=== PATIENT | female | born 1940 | race Caucasian/White ===

== ENCOUNTER 2018-07-27 22:27 | Emergency (ER) | payer MEDICARE, MEDICAID ==
--- NOTE | 2018-07-27 23:24 | EDM.PDOC ---
ED HPI GENERAL MEDICAL PROBLEM - General Chief Complaint: Genitourinary Problem Stated Complaint: UTI Time Seen by Provider: 07/27/18 23:18 Source of Information: Reports: Patient History Limitations: Reports: No Limitations - History of Present Illness INITIAL COMMENTS - FREE TEXT/NARRATIVE: 77 yo female with c/o incontinence and urgency of urine since last Thursday. Associated with pelvic and right lower abdominal pain. No fever. Pain is moderate. Has had similar episodes and previously has gone to [place] local ER's. She came in by EMS. Her PMH has a h/o Diverticulitis,HTN,GED and HLD.She has had GUSTAVO,Appendectomy and Cholecystectomy - Related Data Allergies Allergy/AdvReac Type Severity Reaction Status Date / Time Penicillins Allergy Abdominal Verified 07/27/18 23:05 Pain Home Meds: Home Meds . [Unable to Verify Home Med List] 07/27/18 [History] ED ROS GENERAL - Review of Systems Review Of Systems: ROS reveals no pertinent complaints other than HPI. ED EXAM, RENAL/ - Physical Exam Exam: See Below Exam Limited By: No Limitations General Appearance: Alert, WD/WN Ears: Normal External Exam Nose: Normal Inspection Throat/Mouth: Normal Inspection Neck: Normal Inspection Respiratory/Chest: No Respiratory Distress Cardiovascular: Normal Peripheral Pulses GI/Abdominal: Normal Bowel Sounds Back Exam: Normal Inspection Course - Orders/Labs/Meds Labs: Laboratory Tests 07/27/18 07/27/18 07/27/18 Range/Units 22:15 22:43 22:43 WBC 5.5 (4.5-12.0) X10-3/uL RBC 4.36 (3.23-5.20) x10(6)uL Hgb 12.1 (11.5-15.5) g/dL Hct 36.8 (30.0-51.3) % MCV 84.5 (80-96) fL MCH 27.7 (27.7-33.6) pg MCHC 32.8 (32.2-35.4) g/dL RDW 13.9 (11.5-15.5) % Plt Count 308 (125-369) X10(3)uL MPV 8.1 (7.4-10.4) fL Neut % (Auto) 64.9 (46-82) % Lymph % (Auto) 18.7 (13-37) % [place] % (Auto) 11.1 (4-12) % Eos % (Auto) 5 (1.0-5.0) % Baso % (Auto) 1 (0-2) % Neut # (Auto) 3.6 (1.6-8.3) # Lymph # (Auto) 1.0 (0.6-5.0) # [place] # (Auto) 0.6 (0.0-1.3) # Eos # (Auto) 0.3 (0.0-0.8) # Baso # (Auto) 0.0 (0.0-0.2) # Sodium 138 (135-145) mmol/L Potassium 4.3 (3.5-5.3) mmol/L Chloride 101 (100-110) mmol/L Carbon Dioxide 29 (21-32) mmol/L BUN 17 (7-18) mg/dL Creatinine 1.0 (0.55-1.02) mg/dL Est Cr Clr Drug Dosing TNP Estimated GFR (MDRD) 54 L (>60) BUN/Creatinine Ratio 17.0 (9-20) Glucose 107 (80-116) mg/dL Calcium 10.0 (8.6-10.2) mg/dL Urine Color Yellow (YELLOW) Urine Appearance Clear (CLEAR) Urine pH 6.0 (5.0-6.5) Ur Specific [place] 1.015 (1.010-1.025) Urine Protein Negative (NEGATIVE) mg/dL Urine Glucose (UA) Normal (NORMAL) mg/dL Urine Ketones Negative (NEGATIVE) mg/dL Urine Occult Blood Negative (NEGATIVE) Urine Nitrite Negative (NEGATIVE) Urine Bilirubin Negative (NEGATIVE) Urine Urobilinogen Normal (NEGATIVE) mg/dL Ur Leukocyte Esterase Negative (NEGATIVE) Urine RBC 0-5 (0-5) Urine WBC 0-5 (0-5) Ur Squamous Epith Cells Occasional (NS,R,O) Urine Bacteria Rare H (NS) Departure - Departure Time of Disposition: 23:22 Disposition: Home, Self-Care 01 Condition: Good Clinical Impression: Incontinence in female - Discharge Information Referrals: PCP,Not In Area [Primary Care Provider] - - Problem List & Annotations (1) Incontinence in female SNOMED Code(s): 04578471 Code(s): R32 - UNSPECIFIED URINARY INCONTINENCE Status: Acute Current Visit: Yes (2) Chronic abdominal pain SNOMED Code(s): 467050785 Code(s): R10.9 - UNSPECIFIED ABDOMINAL PAIN; G89.29 - OTHER CHRONIC PAIN Status: Acute Current Visit: Yes - Problem List Review Problem List Initiated/Reviewed/Updated: Yes - Assessment/Plan Plan: Her labs,including a cath UA were normal. I advised her to follow up with PCP - perhaps obtain a referral to Urology. May return to home.
== END 2018-07-28 00:10 | disposition home or self-care (01) ==
LOC: FB.ED 22:27
DX: R32 Unspecified urinary incontinence (principal); Z88.0 Allergy status to penicillin
CPT/HCPCS: 36415; 80048; 81001; 85025; 99283